=== PATIENT | male | born 2000 ===

== ENCOUNTER 2020-07-05 15:10 | Emergency (ER) | payer OTHER ==
[~2020-07-05] VITALS: Ht 180.3 cm; Wt 64.9 kg
== END 2020-07-05 20:04 | disposition home or self-care (01) ==
LOC: ER 15:10
DX: S92.252A Displaced fracture of navicular [scaphoid] of left foot, initial encounter for closed fracture (principal); S60.211A Contusion of right wrist, initial encounter; W07.XXXA Fall from chair, initial encounter; Y93.89 Activity, other specified; Y92.098 Other place in other non-institutional residence as the place of occurrence of the external cause; Y99.8 Other external cause status